=== PATIENT | female | born 2000 | race Caucasian/White ===

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

== ENCOUNTER 2023-01-11 20:20 | Emergency (ER) | payer MEDICAID ==
[~2023-01-11 20:20] MED LIST changes: -SULF1TAB35 PO; +SULF1TAB38 PO
[2023-01-11] MEDS ORDERED: LACTATED RINGERS 1,000 ML IV ONE (21:45)
[2023-01-11 21:47] LABS: BASOPHILS # (AUTO) 0.1 10^3/uL (0.0-0.1); BASOPHILS % (AUTO) 1 % (0-10); EOSINOPHILS # (AUTO) 0.1 10^3/uL (0.0-0.3); EOSINOPHILS % (AUTO) 1 % (0-10); HEMATOCRIT 37 % (35-52); HEMOGLOBIN 13.1 g/dL (11.5-16.0); LYMPHOCYTES # (AUTO) 2.6 10^3/uL (1.0-4.0); LYMPHOCYTES % (AUTO) 28 % (12-44); MEAN CORPUSCULAR HEMOGLOBIN 32 pg (25-34); MEAN CORPUSCULAR HGB CONC 36 g/dL (32-36); MEAN CORPUSCULAR VOLUME 89 fL (80-99); MEAN PLATELET VOLUME 10.4 fL (9.0-12.2); MONOCYTES # (AUTO) 0.6 10^3/uL (0.0-1.0); MONOCYTES % (AUTO) 7 % (0-12); NEUTROPHILS # (AUTO) 5.8 10^3/uL (1.8-7.8); NEUTROPHILS % (AUTO) 63 % (42-75); PLATELET COUNT 264 10^3/uL (130-400); WHITE BLOOD COUNT 9.2 10^3/uL (4.3-11.0)
--- NOTE | 2023-01-11 21:50 | ED Abdominal Pain ---
General Chief Complaint: Abdominal/GI Problems Stated Complaint: ABDOMINAL PAIN Nursing Triage Note: PT AMB TO RM 2 WITH CC OF EIPGASTRIC PAIN X 1 WEEK. PT STATES PAIN INCREASE WITH EATING. DENIES N/V. Source of Information: Patient History of Present Illness Date Seen by Provider: Jan 11, 2023 Time Seen by Provider: 21:30 Initial Comments PT ARRIVES VIA POV FROM HOME C/O EPIGASTRIC PAIN X 1 WEEK PAIN IS CONSTANT, AND WORSE AFTER EATING NO RADIATION OF PAIN NO NAUSEA/VOMITING. NORMAL BM TODAY NO URINARY SYMPTOMS NO FEVER NO CHEST PAIN NO BACK PAIN LMP 01/03/23. NORMAL, NO CONTROL TOOK TUMS 1 TIME A COUPLE OF DAYS AGO, NO RELIEF HAS NOT TAKEN ANYTHING ELSE AT ANY TIME FOR THIS PROBLEM SYMPTOMS NO DIFFERENT TODAY IN ANY WAY. HAS NOT SOUGHT CARE UNTIL [place] LAST ATE AROUND 1900--[facility] BEEF SANDWICH, CURLY FRIES AND WATER. PCP: JERMAN Allergies and Home Medications Allergies Coded Allergies: ceftriaxone (Unverified Allergy, Mild, 11/20/19) nickel (Unverified Allergy, Mild, 11/20/19) Patient Home Medication List Benzocaine/Menthol (Dermoplast Pain Relieving [place]) 78 Gm Aerosol, 0 ML TP UD PRN for PAIN- SEE INSTRUCTIONS Prescribed by: DEXTER ALTAMIRANO on 11/22/19 08 Dibucaine (Dibucaine) 30 Gm Oint, 0 GM TOP UD PRN for PAIN- SEE INSTRUCTIONS Prescribed by: DEXTER ALTAMIRANO on 11/22/19 08 Ferrous Sulfate (Ferrous Sulfate) 325 Mg Tablet, 325 MG PO DAILY@0800 Prescribed by: DEXTER ALTAMIRANO on 11/22/19 0808 Hydrocodone Bit/Acetaminophen (Lortab 5 Mg Tablet) 1 Tab Tab, 1 TAB PO Q4H PRN for PAIN-MODERATE (5-7) Prescribed by: DEXTER ALTAMIRANO on 11/22/19 08 Ibuprofen (Ibu) 600 Mg Tablet, 600 MG PO Q6H Prescribed by: DEXTER ALTAMIRANO on 11/22/19 0808 Cad033/Iron Fumarate/FA/Dss ( 19 Tablet) 1 Each Tablet, 1 EACH PO DAILY, (Reported) Entered as Reported by: SEGUN TODD on 11/09/19 0603 Review of Systems Review of Systems Constitutional: no symptoms reported Respiratory: No Symptoms Reported Cardiovascular: No Symptoms Reported Gastrointestinal: See HPI, Abdominal Pain; Denies Diarrhea, Denies Nausea, Denies Poor Appetite, Denies Vomiting Genitourinary: No Symptoms Reported Musculoskeletal: no symptoms reported Skin: no symptoms reported Psychiatric/Neurological: No Symptoms Reported Endocrine: No Symptoms Reported Hematologic/Lymphatic: No Symptoms Reported Past [id number] Hx Patient Social History Tobacco Use?: No Substance use?: No Alcohol Use?: No Pt feels they are or have been: No Immunizations Up To Date PED Vaccines UTD: Yes Seasonal Allergies Seasonal Allergies: Yes Past Medical History Surgeries: Yes (WISDOM TEETH) Respiratory: No Cardiac: No Neurological: No : No Reproductive Disorders: No Female Reproductive Disorders: Denies Sexually Transmitted Disease: No HIV/AIDS: No Genitourinary: Yes Bladder Infection, UTI-Chronic 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 0oz. [id number]; 28.63 BMI Method:Stated General Appearance: WD/WN, no apparent distress, other (WAKS UPRIGHT AND MOVES QUICKLY WITHOUT ANY DIFFICULTY. 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4 9.0-12.2 fL Immature Granulocyte % (Auto) 0 % Neutrophils (%) (Auto) 63 42-75 % Lymphocytes (%) (Auto) 28 12-44 % Monocytes (%) (Auto) 7 0-12 % Eosinophils (%) (Auto) 1 0-10 % Basophils (%) (Auto) 1 0-10 % Neutrophils # (Auto) 5.8 1.8-7.8 10^3/uL Lymphocytes # (Auto) 2.6 1.0-4.0 10^3/uL Monocytes # (Auto) 0.6 0.0-1.0 10^3/uL Eosinophils # (Auto) 0.1 0.0-0.3 10^3/uL Basophils # (Auto) 0.1 0.0-0.1 10^3/uL Immature Granulocyte # (Auto) 0.0 0.0-0.1 10^3/uL Erythrocyte Sedimentation Rate 8 0-20 MM/HR Sodium Level 140 135-145 MMOL/L Potassium Level 3.8 3.6-5.0 MMOL/L Chloride Level 108 H 98-107 MMOL/L Carbon Dioxide Level 20 L 21-32 MMOL/L Anion Gap 12 5-14 MMOL/L Blood Urea Nitrogen 11 7-18 MG/DL Creatinine 0.70 0.60-1.30 MG/DL Estimat Glomerular Filtration Rate 127 BUN/Creatinine Ratio 16 Glucose Level 100 70-105 MG/DL Calcium Level 9.1 8.5-10.1 MG/DL Corrected Calcium 8.7 8.5-10.1 MG/DL Total Bilirubin 0.7 0.1-1.0 MG/DL Aspartate Amino Transf (AST/SGOT) 14 5-34 U/L Alanine Aminotransferase (ALT/SGPT) 15 0-55 U/L Alkaline Phosphatase 76 40-136 U/L C-Reactive Protein High Sensitivity 0.41 0.00-0.50 MG/DL Total Protein 7.5 6.4-8.2 GM/DL Albumin 4.5 3.2-4.5 GM/DL Amylase Level 70 25-125 U/L Lipase 31 8-78 U/L Urine Color YELLOW Urine Clarity CLEAR Urine pH 6.0 5-9 Urine Specific [place] >=1.030 1.016-1.022 Urine Protein NEGATIVE NEGATIVE Urine Glucose (UA) NEGATIVE NEGATIVE Urine Ketones NEGATIVE NEGATIVE Urine Nitrite NEGATIVE NEGATIVE Urine Bilirubin NEGATIVE NEGATIVE Urine Urobilinogen 2.0 < = 1.0 MG/DL Urine Leukocyte Esterase NEGATIVE NEGATIVE Urine RBC (Auto) NEGATIVE NEGATIVE Urine RBC 0-2 /HPF Urine WBC 0-2 /HPF Urine Squamous Epithelial Cells 5-10 /HPF Urine Crystals PRESENT H /LPF Urine Amorphous Sediment FEW PRIMITIVO URATES H /LPF Urine Bacteria FEW H /HPF Urine Casts NONE /LPF Urine Mucus MODERATE H /LPF Urine Culture Indicated NO Urine Opiates Screen NEGATIVE NEGATIVE Urine Oxycodone Screen NEGATIVE NEGATIVE Urine Methadone Screen NEGATIVE NEGATIVE Urine Propoxyphene Screen NEGATIVE NEGATIVE Urine Barbiturates Screen NEGATIVE NEGATIVE Ur Tricyclic Antidepressants Screen NEGATIVE NEGATIVE Urine Phencyclidine Screen NEGATIVE NEGATIVE Urine Amphetamines Screen NEGATIVE NEGATIVE Urine Methamphetamines Screen NEGATIVE NEGATIVE Urine Benzodiazepines Screen NEGATIVE NEGATIVE Urine Cocaine Screen NEGATIVE NEGATIVE Urine Cannabinoids Screen NEGATIVE NEGATIVE My Orders Orders - WING ALCAZAR DO Ed Iv/Invasive Line Start (01/11/23 21:31) Urine Bedside (01/11/23 21:31) Monitor-Rhythm Ecg Trace Only (01/11/23 21:31) Amylase (01/11/23 21:31) Cbc With Automated Diff (01/11/23 21:31) Comprehensive Metabolic Panel (01/11/23 21:31) Hs C Reactive Protein (01/11/23 21:31) Drug Screen Stat (Urine) (01/11/23 21:31) Lipase (01/11/23 21:31) Ua Culture If Indicated (01/11/23 21:31) Erythrocyte Sedimentation Rate (01/11/23 21:31) Ed Iv/Invasive Line Start (01/11/23 21:31) Lactated Ringers (Lr 1000 Ml Iv Solution (01/11/23 21:45) Ketorolac Injection (Toradol Injection) (01/11/23 22:00) Pantoprazole Injection (Protonix Injecti (01/11/23 22:00) Ct Abdomen/Pelvis W (01/11/23 21:51) Iohexol Injection (Omnipaque 350 Mg/Ml 1 (01/11/23 22:15) Received Contrast (Hold Metformin- Contr (01/11/23 22:15) Ns (Ivpb) (Sodium Chloride 0.9% Ivpb Bag (01/11/23 22:15) Medications Given in ED Current Medications Medications Dose Ordered Sig/Kailee Route Start Time Stop Time Status Last Admin Dose Admin Iohexol 100 ml ONCE ONCE IV 01/11/23 22:15 01/11/23 22:17 DC 01/11/23 22:12 80 ML Ketorolac Tromethamine 30 mg ONCE ONCE IVP 01/11/23 22:00 01/11/23 22:01 DC 01/11/23 22:17 30 MG Lactated Ringer's 1,000 ml @ 0 mls/hr Q0M ONCE IV 01/11/23 21:45 01/11/23 21:46 DC 01/11/23 22:17 1,000 MLS/HR Pantoprazole 40 mg ONCE ONCE IV 01/11/23 22:00 01/11/23 22:01 DC 01/11/23 22:17 40 MG Sodium Chloride 100 ml ONCE ONCE IV 01/11/23 22:15 01/11/23 22:17 DC 01/11/23 22:12 80 ML Vital Signs/I&O 01/11/23 21:00 Temp 36.5 Pulse 103 Resp 18 B/P (MAP) 137/95 (109) Pulse Ox 99 O2 Delivery Room Air Blood Pressure Mean: [address] ABDOMEN/PELVIS--PER RADIOLOGIST REPORT AT 2227 Lung bases are clear. Liver appears normal. Gallbladder is contracted. Pancreas is normal. Spleen is not enlarged. Kidneys and adrenals appear normal. Small bowel is not dilated. There is large amount of stool throughout the colon. The appendix is normal. Uterus and adnexa are unremarkable. Urinary bladder is decompressed. There is no intraperitoneal free air or free fluid. IMPRESSION: Fecal stasis. No acute abnormality seen. Reviewed: Reviewed by Me Departure Impression Primary Impression: Epigastric abdominal pain Additional Impression: Constipation Disposition: HOME, SELF-CARE Condition: Stable Departure-Patient Inst. Decision time for Depature: 22:40 Referrals: [facility]/ (PCP) Primary Care Physician [facility] (Family) Primary Care Physician Patient Instructions: Constipation, Adult ED, Abdominal Pain, Adult ED Add. Discharge Instructions: CLEAR LIQUIDS--WATER, BROTH, JELLO, GATORADE BRATS DIET--BANANAS, RICE, APPLESAUCE, TOAST, SALTINES TAKE MIRALAX DAILY FOLLOW UP WITH YOUR DR THIS WEEK FOR FURTHER CARE--CALL IN THE MORNING TO SCHEDULE AN APPOINTMENT All discharge instructions reviewed with patient and/or family. Voiced understanding. Scripts Hyoscyamine Sulfate (Levsin-Sl) 0.125 Mg Tab.subl 0.25 MG SL Q4H, #10 TAB Prov: WING ALCAZAR DO 01/11/23 Pantoprazole Sodium (Protonix) 40 Mg Tablet. 40 MG PO DAILY, #15 TAB Prov: WING ALCAZAR DO 01/11/23 WING ALCAZAR DO Jan 11, 2023 21:50
[2023-01-11 21:53] LABS: ALBUMIN 4.5 GM/DL (3.2-4.5); POTASSIUM 3.8 MMOL/L (3.6-5.0)
[2023-01-11 21:54] LABS: CALCIUM 9.1 MG/DL (8.5-10.1)
[2023-01-11 21:56] LABS: TOTAL PROTEIN 7.5 GM/DL (6.4-8.2)
[2023-01-11 21:57] LABS: BILIRUBIN,TOTAL 0.7 MG/DL (0.1-1.0)
[2023-01-11 21:59] LABS: CREATININE SERUM 0.7 MG/DL (0.60-1.30)
[2023-01-11] MEDS ORDERED: KETOROLAC 30 MG/ML VIAL IVP ONE (22:00)
[2023-01-11] MEDS ORDERED: PANTOPRAZOLE 40 MG (PROTONIX) VIAL IV ONE (22:00)
[2023-01-11 22:06] LABS: BILIRUBIN,URINE NEGATIVE (NEGATIVE); CLARITY,URINE CLEAR; COLOR,URINE YELLOW; GLUCOSE, URINE (UA) NEGATIVE (NEGATIVE); KETONES,URINE NEGATIVE (NEGATIVE); LEUKOCYTE ESTERASE ,URINE NEGATIVE (NEGATIVE); NITRITE,URINE NEGATIVE (NEGATIVE); PROTEIN,URINE NEGATIVE (NEGATIVE)
[2023-01-11] MEDS ORDERED: IOHEXOL 350 MG/ML 100 ML (OMNIPAQUE 350) VIAL IV ONE (22:15)
[2023-01-11] MEDS ORDERED: HOLD METFORMIN - RECEIVED CONTRAST 20 ML VIAL IV SCH (22:15)
[2023-01-11] MEDS ORDERED: NS 100 ML (IVPB) BAG IV ONE (22:15)
[2023-01-11 22:17] LABS: ERYTHROCYTE SEDIMENTATION RATE 8 MM/HR (0-20)
--- NOTE | 2023-01-11 22:23 | Diagnostic Imaging Report ---
PROCEDURE: CT abdomen and pelvis with contrast. TECHNIQUE: Multiple contiguous axial images were obtained through the abdomen and pelvis after administration of intravenous contrast. Auto Exposure Controls were utilized during the CT exam to meet ALARA standards for radiation dose reduction. All CT scans use one or more of the following dose optimizing techniques: automated exposure control, MA and/or KvP adjustment based on patient size and exam type or iterative reconstruction. INDICATION: Epigastric pain Lung bases are clear. Liver appears normal. Gallbladder is contracted. Pancreas is normal. Spleen is not enlarged. Kidneys and adrenals appear normal. Small bowel is not dilated. There is large amount of stool throughout the colon. The appendix is normal. Uterus and adnexa are unremarkable. Urinary bladder is decompressed. There is no intraperitoneal free air or free fluid. IMPRESSION: Fecal stasis. No acute abnormality seen. Dictated by: Dictated on workstation # [id number]
[2023-01-11 22:27] LABS: AMORPHOUS SEDIMENT,UR FEW AMOR URATES /LPF; BACTERIA,URINE FEW /HPF; RBC,URINE 0-2 /HPF; WBC,URINE 0-2 /HPF
[2023-01-11 22:29] LABS: AMPHETAMINE SCREEN, URINE NEGATIVE (NEGATIVE); BARBITURATE SCREEN URINE NEGATIVE (NEGATIVE); BENZODIAZEPINES SCREEN URINE NEGATIVE (NEGATIVE); CANNABINOID SCREEN, URINE NEGATIVE (NEGATIVE); COCAINE SCREEN URINE NEGATIVE (NEGATIVE); METHADONE STAT NEGATIVE (NEGATIVE); OPIATE SCREEN URINE NEGATIVE (NEGATIVE); OXYCODONE STAT NEGATIVE (NEGATIVE); PROPOXYPHENE STAT NEGATIVE (NEGATIVE); TRICYCLIC ANTIDEPRESSANTS SCRE NEGATIVE (NEGATIVE)
[2023-01-11] MEDS ORDERED: HYOS0.1283 SL (22:44)
[2023-01-11] MEDS ORDERED: PANT40TA2 PO (22:44)
[2023-01-11 22:55] VITALS: BP 134/77
== END 2023-01-11 22:55 | disposition home or self-care (01) ==
LOC: EDUNIT# 20:20 → ER 20:22
DX: K59.00 Constipation, unspecified (principal); Z28.310 Unvaccinated for COVID-19
CPT/HCPCS: 36415; 74177; 80053; 80306; 81000; 82150; 83690; 84703; 85025; 85652; 86141

== ENCOUNTER → 2023-02-25 | Outpatient (CLI) | payer MEDICAID ==
[~2023-02-25] MED LIST changes: +HYOS0.1283 SL; +PANT40TA2 PO
== END ==
LOC: LAB 09:08
PROVIDERS: ATTEND Student in an Organized Health Care Education/Training Program
DX: E28.2 Polycystic ovarian syndrome (principal); R63.5 Abnormal weight gain
CPT/HCPCS: 36415; 80299; 82024; 82533

== ENCOUNTER → 2023-08-09 | Outpatient (CLI) | payer OTHER ==
--- NOTE | 2023-08-09 16:44 | Diagnostic Imaging Report ---
INDICATION: Supervision of normal . Anatomy scan. TECHNIQUE: Multiple Real-time grayscale images were obtained over the gravid uterus. COMPARISON: None FINDINGS: A single live intrauterine gestation is visualized in breech presentation. heart tones measure 152 BPM. The placenta is posterior and not low-lying. The NELLIE is normal measuring 15.1 cm. The cervix is closed and measures 7.0 cm in length. The kidneys, bladder, stomach, brain, four-chamber heart, outflow tracts, three-vessel cord, and cord insertion are visualized and have a normal appearance. The spine is suboptimally visualized due to position. Views of the adnexa are unremarkable. Biometrical measurements are as follows: Biparietal 4.57 cm, age 19 weeks 6 days. Head circumference 18.11 cm, age 20 weeks 4 days. Abdominal circumference 14.80 cm, age 20 weeks 1 days. Femur length 3.15 cm, age 19 weeks 6 days. Sonographic estimate age: 20 weeks 1 days. Sonographic estimated date of delivery: 12/26/2023. Estimated Weight: 325 gm (+/- 48 gm). LMP percentile: 30%. heart rate: 152 beats per minute. number: 1 of 1. IMPRESSION: 1. Single live intrauterine gestation measuring 20 weeks 1 day with an estimated due date of 12/26/2023. These are within range of the clinical dates. 2. The spine is suboptimally visualized due to position; otherwise, the anatomy is seen and has a normal appearance. Recommend followup as indicated. 3. Breech presentation. Recommend attention on followup. Dictated by: Dictated on workstation # [id number]
== END ==
LOC: RAD 14:00
PROVIDERS: ATTEND Nurse Practitioner Women's Health
DX: Z34.02 Encounter for supervision of normal first pregnancy, second trimester (principal); Z3A.20 20 weeks gestation of pregnancy
CPT/HCPCS: 76805